=== PATIENT | male | born 1950 | race Caucasian/White ===

== ENCOUNTER 2018-08-20 22:12 | Inpatient (IN) | payer OTHER ==
[~2018-08-20] VITALS: Ht 182.9 cm; Wt 88.0 kg
[2018-08-20 23:25] LABS: BASOPHIL % 0.3 % (0-2); PLATELET COUNT 144 x10^3mcL (130-400)
[2018-08-20 23:28] LABS: RED CELL DISTRIBUTION WIDTH 16.3 % (11.5-14.5)
[2018-08-20 23:39] LABS: ALBUMIN 3.6 g/dL (3.4-5.0); BILIRUBIN TOTAL 1.7 mg/dL (0.20-1.00); CALCIUM 8.8 mg/dL (8.5-10.1)
[2018-08-20 23:40] LABS: TOTAL PROTEIN, SERUM 9.1 g/dL (6.4-8.2)
[2018-08-21] VITALS (10 sets, daily range): BP systolic 78–121; BP diastolic 46–79
[2018-08-21] LABS: POTASSIUM SERUM 6.6 mmol/L (3.5-5.1)
[2018-08-21 00:01] LABS: CARBON DIOXIDE 9.3 mmol/L (21-32); CREATININE SERUM 4.4 mg/dL (0.7-1.3)
[2018-08-21 00:12] LABS: CK-MB 134.1 ng/mL (0-3.6)
[2018-08-21 00:23] LABS: UA SPECIFIC GRAVITY 1.025 (1.005-1.035); microscopic required? NO; urine erythrocyte NEGATIVE (NEGATIVE)
[2018-08-21 00:50] LABS: AMPHETAMINE QUAL UR NONE DETECTED (See below)
[2018-08-21 05:19] LABS: CALCIUM 7.9 mg/dL (8.5-10.1); CARBON DIOXIDE 11.4 mmol/L (21-32)
[2018-08-21 06:09] LABS: CREATININE SERUM 4.4 mg/dL (0.7-1.3); POTASSIUM SERUM 6.6 mmol/L (3.5-5.1)
[2018-08-21 14:16] LABS: CALCIUM 6.2 mg/dL (8.5-10.1)
[2018-08-21 14:18] LABS: CREATININE SERUM 5.2 mg/dL (0.7-1.3); POTASSIUM SERUM 7.3 mmol/L (3.5-5.1)
[2018-08-22] VITALS (8 sets, daily range): BP systolic 44–115; BP diastolic 27–62; Ht 182.9 cm; Wt 88.0 kg
[2018-08-22 09:03] LABS: BILIRUBIN TOTAL 2.8 mg/dL (0.20-1.00); CARBON DIOXIDE 16.6 mmol/L (21-32); MAGNESIUM 2.1 mg/dL (1.8-2.4)
[2018-08-22 09:33] LABS: ALBUMIN 1.9 g/dL (3.4-5.0); TOTAL PROTEIN, SERUM 5.5 g/dL (6.4-8.2)
[2018-08-22 09:35] LABS: CREATININE SERUM 4.7 mg/dL (0.7-1.3)
[2018-08-22 09:36] LABS: CALCIUM 5.3 mg/dL (8.5-10.1)
[2018-08-22 09:54] LABS: PHOSPHOROUS 11.7 mg/dL (2.5-4.9)
== END 2018-08-22 13:44 | disposition expired | DRG 871 ==
LOC: ED 22:12 → IC 08-21 01:43
PROVIDERS: Emergency Medicine; Internal Medicine Nephrology; ADMIT Internal Medicine
PROC: 5A1935Z Respiratory Ventilation, Less than 24 Consecutive Hours (ICD-10-PCS; principal; 2018-08-21)
PROC: 0BH17EZ Insertion of Endotracheal Airway into Trachea, Via Natural or Artificial Opening (ICD-10-PCS; 2018-08-21)
PROC: 05HM33Z Insertion of Infusion Device into Right Internal Jugular Vein, Percutaneous Approach (ICD-10-PCS; 2018-08-21)
PROC: B543ZZA Ultrasonography of Right Jugular Veins, Guidance (ICD-10-PCS; 2018-08-21)
DX: A41.9 Sepsis, unspecified organism (principal); I21.4 Non-ST elevation (NSTEMI) myocardial infarction; N17.0 Acute kidney failure with tubular necrosis; J96.00 Acute respiratory failure, unspecified whether with hypoxia or hypercapnia; K85.90 Acute pancreatitis without necrosis or infection, unspecified; R65.21 Severe sepsis with septic shock; M62.82 Rhabdomyolysis; K56.7 Ileus, unspecified; K62.5 Hemorrhage of anus and rectum; K55.9 Vascular disorder of intestine, unspecified; E87.2 Acidosis; F10.20 Alcohol dependence, uncomplicated; K72.90 Hepatic failure, unspecified without coma; K70.30 Alcoholic cirrhosis of liver without ascites; E87.5 Hyperkalemia; S80.212A Abrasion, left knee, initial encounter; S80.211A Abrasion, right knee, initial encounter; R74.0 Nonspecific elevation of levels of transaminase and lactic acid dehydrogenase [LDH]; W18.39XA Other fall on same level, initial encounter; Z51.5 Encounter for palliative care; Z66 Do not resuscitate; Y93.89 Activity, other specified; Y92.018 Other place in single-family (private) house as the place of occurrence of the external cause; Z86.73 Personal history of transient ischemic attack (TIA), and cerebral infarction without residual deficits
CPT/HCPCS: 36556; 36600; 82962; 85378; 90715; A4628; C9113; G0480; J0610; J0696; J1644; J1815; J2270; J2370; J2405; J2543; J3010; J3411; J3490; J7030; J7040; J7613; Q0092